=== PATIENT | female | born 1980 | race Caucasian/White ===

== ENCOUNTER 2018-09-02 13:27 | Inpatient (IN) | payer MEDICAID ==
[~2018-09-02] VITALS: Ht 162.6 cm; Wt 113.4 kg
[2018-09-02 14:00] VITALS: BP 107/68
--- NOTE | 2018-09-02 14:00 | NUR ---
PATIENT TRIAGED, VSS STABLE.
--- NOTE | 2018-09-02 14:05 | NUR ---
PATIENT UNABLE TO URINATE AT THIS TIME; GIVEN URINE CUP.
--- NOTE | 2018-09-02 14:10 | NUR ---
AGO.PT C/O R ABD PAIN X1 WEEK, 7/10 SHARP PAIN. REPORTS N/V X 3 EPISODES TODAY. BM NORMAL THIS AM.MED HX: GALL BLADDER REMOVAL 10 YEARS . ALLERGIES---TORADOL, IV CONTRAST. SKIN IS PINK/WARM/DRY; AAOX4 WITH EVEN AND STEADY GAIT; PATIENT STATES PAIN OF 7/10 AT THIS TIME; PATIENT POSITIONED FOR COMFORT; HOB ELEVATED; BEDRAILS UP X2; BED DOWN. ER MD MADE AWARE OF PT STATUS.
[2018-09-02 14:59] LABS: BASOPHILS # (AUTO) 0.1 K/uL (0.00-0.22); BASOPHILS % (AUTO) 1.2 % (0.0-2.0); EOSINOPHILS # (AUTO) 0.1 K/uL (0-0.4); EOSINOPHILS % (AUTO) 1.3 % (0.0-4.0); HEMATOCRIT 42.1 % (36-48); HEMOGLOBIN 13.5 g/dL (12.0-16.0); LYMPHOCYTES # (AUTO) 2.4 K/uL (2.5-16.5); LYMPHOCYTES % (AUTO) 21.6 % (20.5-51.1); MEAN CORPUSCULAR HEMOGLOBIN 28 pg (27-31); MEAN CORPUSCULAR HGB CONC 32 g/dL (33-37); MEAN CORPUSCULAR VOLUME 86.5 fL (80-94); MONOCYTES # (AUTO) 0.4 K/uL (0.8-1.0); MONOCYTES % (AUTO) 3.8 % (1.7-9.3); NEUTROPHILS # (AUTO) 7.8 K/uL (1.8-7.7); NEUTROPHILS % (AUTO) 72.1 % (42.2-75.2); PLATELET COUNT (AUTO) 371 K/uL (140-450); RED BLOOD CELL COUNT(AUTO) 4.87 MIL/uL (4.20-5.40); RED CELL DISTRIBUTION WIDTH 14.5 % (11.6-13.7); WHITE BLOOD COUNT (AUTO) 10.9 K/uL (4.8-10.8)
[2018-09-02 15:08] LABS: ANION GAP 13.5 (8-16); CARBON DIOXIDE 27.6 mmol/L (21-32); CREATININE 0.8 mg/dL (0.6-1.3); POTASSIUM 4.1 mmol/L (3.5-5.1)
[2018-09-02 15:13] LABS: ALBUMIN 3.6 g/dL (3.4-5.0); TOTAL BILIRUBIN 0.4 mg/dL (0.0-1.0)
--- NOTE | 2018-09-02 16:19 | NUR ---
Patient being evaluated by DR GONSALES at bedside.
[2018-09-02] MEDS ORDERED: MORPHINE SULFATE 4 MG/ML SYR IVP ONE ×2 (16:25→17:45)
[2018-09-02] MEDS ORDERED: ONDANSETRON 4 MG/2 ML VIAL IVP ONE (16:25)
--- NOTE | 2018-09-02 16:54 | NUR ---
PT TO CT VIA [facility]
[2018-09-02] MEDS ORDERED: PIPERACILLIN/TAZOBACTAM 3.375 GM in DEXTROSE 5% 50 ML IV ONE (17:20)
[2018-09-02] MEDS ORDERED: diphenhydrAMINE 50 MG/ML VIAL IVP ONE (17:20)
[2018-09-02] MEDS ORDERED: PIPERACILLIN/TAZOBACTAM 3.375 GM VIAL IV ONE (17:31)
[2018-09-02] MEDS ORDERED: ACETAMINOPHEN 325 MG TAB PO PRN (17:40)
[2018-09-02] MEDS ORDERED: ONDANSETRON 4 MG/2 ML VIAL IM/IVP PRN (17:40)
[2018-09-02] MEDS ORDERED: HYDROcodone/APAP 7.5/325 MG 1 TAB PO PRN (17:40)
[2018-09-02] MEDS ORDERED: DOCUSATE SODIUM 100 MG GELCAP PO PRN (17:40)
[2018-09-02] MEDS ORDERED: DEXT 5% /NACL 0.9% 1,000 ML IV SCH (17:45)
[2018-09-02 18:24] LABS: CHOL/HDL RATIO 2.8 (1-4.5); FREE T4 (FREE THYROXINE) 0.82 ng/dL (0.76-1.46); MAGNESIUM 1.9 mg/dL (1.8-2.4); PHOSPHORUS 3.6 mg/dL (2.5-4.9); THYROID STIMULATING HORMONE 1.62 uIU/mL (0.34-3.74)
--- NOTE | 2018-09-02 18:25 | NUR ---
PT ARRIVED ON THE UNIT WITH 1 ER NURSE, IN A WHEELCHAIR. PT IS ALERT AND ORIENTED. INTRODUCED MYSELF AND UPDATED THE BOARD. PT AMBULATED FROM THE WHEELCHAIR TO THE BED AND TO THE BATHROOM AND BACK. STEADY GAIT. C/O ABD PAIN. WILL CHECK ORDERS. IV ON R FA 24G ZOSYN INFUSING. SKIN INTACT. VS WITHIN NORMAL LIMITS. MRSA SCREENING DONE. WILL CONTINUE TO MONITOR PT.
[2018-09-02 18:30] VITALS: BP 131/78
[2018-09-02 18:34] VITALS: BP 104/66
[2018-09-02] MEDS ORDERED: LIDOCAINE VISCOUS 2% 20 ML UDC PO ONE (18:35)
[2018-09-02] MEDS ORDERED: SIMETHICONE 80 MG TAB.CHEW PO ONE (18:35)
--- NOTE | 2018-09-02 18:35 | NUR ---
Pt transferred to Med/Surg via [facility] , REPORT GIVEN TO KAYLA TATUM
[2018-09-02] MEDS ORDERED: DICYCLOMINE HCL LIQUID 20 MG, ALUMINUM HYD/MAG/SIMETHICONE 30 ML, LIDOCAINE VISCOUS 2% ... PO SCH ×3 (19:00)
[2018-09-02] MEDS ORDERED: LIDOCAINE VISCOUS 2% 20 ML UDC ONE (19:01)
[2018-09-02] MEDS ORDERED: ALUMINUM HYD/MAG/SIMETHICONE 30 ML UDC ONE (19:01)
--- NOTE | 2018-09-02 19:06 | NUR ---
RECEIVED REPORT FROM KAYLA TATUM DAYSHIFT NURSE AT BEDSIDE, PT IN STABLE CONDITION.
--- NOTE | 2018-09-02 19:06 | NUR ---
[facility] AT [facility]SIDE FOR CONTINUITY OF CARE. PT IS IN STABLE CONDITION.
[2018-09-02 19:19] LABS: PROTHROMBIN TIME 9.4 secs (10.8-13.4)
[2018-09-02] MEDS ORDERED: HYDROmorphone 1 MG/ML AMP IVP ONE (19:25)
--- NOTE | 2018-09-02 19:45 | NUR ---
PT SITTING IN LOW BED HOB UP 45%. V/S FOLLOWS T 98.2 P 90 R 20 B/P 141/72 02 93% WITH R/A. PT AOX4 BUT APPEARED ANXIOUS AND ABOUT NOT RECEIVING MORE PAIN MEDS FOR HER ABD. PT INFORMED THAT REPORT WAS GIVEN FROM RELIVING NURSE AND THAT PRIMAY NURSE WILL DOUBLE CHECK WHAT THE DOCTOR ORDERED AND WHAT WAS ALREADY GIVEN FOR PAIN AT THIS TIME. PT VERBALIZED UNDERSTANDING.
--- NOTE | 2018-09-02 20:00 | NUR ---
PT C/O PAIN, 8/[address] HARRIS ORDERED A GI COCKTAIL FOR ABD PAIN. PT TOOK MEDICATION ADMINISTERED BUT IS STILL HAS C/O OF SEVERE PAIN. DR. HARRIS ODORED DILAUDID 0.5MG, WHICH WAS GIVEN IV PUSH. PT CONTINUED TO COMPLAIN OF ITCHINESS AND WAS ORDERED 25MG P.O. BENADRYL. PT ASKED IF ANYTHING FOR ITCHINESS WAS ORDERED, AND WHEN PT WAS INFORMED THAT MEDICATION WAS ORDERED P.O. PT BECAME UPSET AND WANTED BENADRYL IV FOR ITCHING ALL OVER. PRIMARY NURSE SAID THAT SHE WOULD SPEAK TO MD REGARDING THE ORDER, BECAUSE PT WAS NOTED SCRATCHING SELF ALL OVER.
--- NOTE | 2018-09-02 20:10 | NUR ---
STAFF FROM APPROACHED PT AND TOLD HER THAT DR. HARRIS HAS ORDERED A TRANSVAGINAL US TO RULE OUT PAIN IN LOWER ABD THAT MAY BE CAUSED BY A TWISTED OVARY. PT SEEMED CONFUSED AND TECH SAID THAT SHE WOULD CLARIFY ORDERES WITH DR. HARRIS.
--- NOTE | 2018-09-02 20:15 | NUR ---
SPOKE WITH DR. HARRIS REGARDING BENADRYL ORDER, DR. HARRIS D/C'D THE BENADRYL PO ORDER AND ORDERED 12.5MG OF BENADRYL IVP.
--- NOTE | 2018-09-02 20:20 | NUR ---
DR. HARRIS WAS IN PT ROOM EXPLAING THAT SHE ORDERED THE TRANSVAGINAL US TO RULE OUT PAIN IN LOWER ABD CAUSED BY A TWISTED OVARY. PT THEN AGREED TO TAKE THE TEST. PT STILL RESTLESS AND AFTER DR. HARRIS LEFT, PT WANTED TO KNOW WHAT SHE WOULD BE GIVEN IF PAIN RETURNED AGAIN AND PT WAS INFORMED THAT DR. HARRIS ORDERED NORCO 7.5/325MG AND PT WAS UPSET BECAUSE SHE SAID THAT SHE TAKES 10/325MG NORCO AT HOME AND SHE FELT THAT HER PAIN WOULD BE BETTER CONTROLLED AT HOME. PT SAID THAT SHE WAS GOING WITH HER MOTHER TO [facility] [place]. PT DIDNT WANT TO SPEAK WITH BUT PRIMARY NURSE SAID THAT IF SHE WANTS TO LEAVE [place] THAT THERE IS A FORM TO SIGN AND THAT THE DOCTOR WOULD NEED TO SPEAK WITH YOU ONE LAST TIME., PT VERBALIZED UNDERSTANDING AND ASKED FOR THE IV FLUIDS TO BE STOPPED SO SHE COULD GET DRESSED IN HER STREET CLOTHES. PRIMARY NURSE STOPPED FLUIDS AND TOOK OUT IV SITE. DR. HARRIS INFORMED.
[2018-09-02] MEDS ORDERED: diphenhydrAMINE 50 MG/ML VIAL IVP SCH (20:30)
--- NOTE | 2018-09-02 20:45 | NUR ---
DR. HARRIS ARRIVED IN PT ROOM AND EXPLAINED THE AMA FORM AND THAT THE HOSPITAL IS NOT LIABLE FOR ANY NEGATIVE EFFECTS IF SHE CHOOSES TO LEAVE AMA. PT SIGNED PAPER AND VERBALIZED UNDERSTANDING. PT ARM BAND CUT OFF AND PT LEFT IN STREET CLOTHES.
[2018-09-03] MEDS ORDERED: PIPER/TAZO 3.375GM/D5W PREMIX 50 ML IV SCH
[2018-09-03] MEDS ORDERED: ALUMINUM HYD/MAG/SIMETHICONE 30 ML UDC PO PRN (01:00)
[2018-09-03] MEDS ORDERED: LACTOBACILLUS RHAMNOSUS GG 1 EACH CAP PO SCH (09:00)
== END 2018-09-02 20:45 | disposition left against medical advice (07) ==
LOC: MED 13:27 → MTU 17:41
PROVIDERS: ADMIT General Practice; ATTEND General Practice
DX: K83.8 Other specified diseases of biliary tract (principal); E66.01 Morbid (severe) obesity due to excess calories; K76.89 Other specified diseases of liver; E78.5 Hyperlipidemia, unspecified; Z53.21 Procedure and treatment not carried out due to patient leaving prior to being seen by health care provider; Z88.8 Allergy status to other drugs, medicaments and biological substances; Z90.49 Acquired absence of other specified parts of digestive tract; Z91.041 Radiographic dye allergy status; Z98.51 Tubal ligation status; Z68.41 Body mass index [BMI] 40.0-44.9, adult; Z91.14 Patient's other noncompliance with medication regimen
CPT/HCPCS: 36415; 71045; 80053; 82150; 83036; 83605; 83690; 83735; 83880; 84100; 84436; 84439; 84443; 84479; 84703; 85025; 85610; 85730; 87040; 87081; 93005; 96374; 96375; 99285; J1170; J1200; J2270; J2405; J2543; J7030; J7060; Q0092